=== PATIENT | female | born 2000 | race Caucasian/White ===

== ENCOUNTER 2019-05-05 11:07 | Emergency (ER) | payer MEDICAID, OTHER ==
[~2019-05-05] VITALS: Ht 156 cm; Wt 75.2 kg
[~2019-05-05 11:07] MED LIST: Albuterol inhaler
--- NOTE | 2019-05-05 11:31 | ED GU-Female ---
General Chief Complaint: SELF RISING FLOUR MIXER Stated Complaint: 33 WKS PREG - CRAMPING,SPOTTING Nursing Triage Note: Patient presents to the ED with c/o of cramping and vaginal spotting during . She states that she is 33 weeks and has had cramping on and off for several weeks. She states that today after she wiped she noted pink tinged blood on the toilet paper. Nursing Sepsis Screen: No Definite Risk Source: patient Exam Limitations: no limitations History of Present Illness Date Seen by Provider: May 05, 2019 Time Seen by Provider: 11:15 Initial Comments 19 y/o @ 33wks Presents w c/o spotting (small amount of blood on toilet tissue) last night after urinating. Did have some lower pelvic cramping last night, that resolved. Normal thus far. Routine OB care from Dr Kohler. Has appt on this next week. Allergies and Home Medications Allergies Coded Allergies: No Known Drug Allergies (Verified Allergy, Unknown, 01/05/08) Patient Home Medication List Home Medication List Reviewed: Yes Review of Systems Review of Systems Constitutional: No fever, No malaise, No weakness Respiratory: No cough, No short of breath Cardiovascular: No chest pain, No palpitations, No syncope Gastrointestinal: No abdominal pain, No loss of appetite, No nausea, No vomiting Genitourinary: see HPI, hematuria, pain : Yes Musculoskeletal: no symptoms reported Past Gevrugq-Yyaevy-Pounsh Hx Past Med/Social Hx: Reviewed Nursing Past Med/Soc Hx Patient Social History Alcohol Use: Denies Use Recreational Drug Use: No Smoking Status: Never a Smoker 2nd Hand Smoke Exposure: No Recent Foreign Travel: No Contact w/Someone Who Travel: No Recent Infectious Disease Expo: No Recent Hopitalizations: No (pneumonia as a baby ) Physical Abuse: No Sexual Abuse: No Mistreated: No Fear: No Seasonal Allergies Seasonal Allergies: No Past Medical History Surgeries: Yes (lap appy, BMT) Appendectomy Respiratory: No Cardiac: No Neurological: No : Yes (33 Weeks ) Hx : 2 Hx Para: 1 Reproductive Disorders: No Genitourinary: No Gastrointestinal: No Musculoskeletal: No Endocrine: No HEENT: No Cancer: No Psychosocial: No ([facility] ([place], [place]) ) Blood Disorders: No Physical Exam Vital Signs Vital Signs - First Documented 2/29/20 11:12 Temp 36.3 Pulse 107 Resp 18 B/P (MAP) 127/66 (86) Pulse Ox 99 O2 Delivery Room Air Capillary Refill : Less Than 3 Seconds Height, Weight, BMI Height: '" Weight: lbs. oz. kg; 30.00 BMI Method: General Appearance: WD/WN, no apparent distress Gastrointestinal: normal bowel sounds, non tender, soft, other (size cwd) Progress/Results/Core Measures Suspected Sepsis Recent Fever Within 48 Hours: No Infection Criteria Present: None New/Unexplained Altered Menta: No Sepsis Screen: No Definite Risk SIRS Temperature: Pulse: 107 Respiratory Rate: 18 Blood Pressure 127 /66 Mean: 86 Results/Orders Lab Results Laboratory Tests Test 05/05/19 11:28 Range/Units Urine Color YELLOW Urine Clarity CLOUDY Urine pH 7.5 5-9 Urine Specific Lyons 1.020 1.016-1.022 Urine Protein NEGATIVE NEGATIVE Urine Glucose (UA) NEGATIVE NEGATIVE Urine Ketones TRACE H NEGATIVE Urine Nitrite NEGATIVE NEGATIVE Urine Bilirubin NEGATIVE NEGATIVE Urine Urobilinogen 1.0 < = 1.0 MG/DL Urine Leukocyte Esterase TRACE H NEGATIVE Urine RBC (Auto) NEGATIVE NEGATIVE Urine RBC NONE /HPF Urine WBC 5-10 H /HPF Urine Squamous Epithelial Cells 25-50 H /HPF Urine Crystals PRESENT H /LPF Urine Amorphous Sediment LARGE SHARATH PHOSPHATE H /LPF Urine Bacteria FEW H /HPF Urine Casts NONE /LPF Urine Mucus MODERATE H /LPF Urine Culture Indicated YES My Orders Orders - LASHANDA LOBO DO Ua Culture If Indicated (05/05/19 11:30) Urine Culture (05/05/19 11:28) Vital Signs/I&O 05/05/19 05/05/19 11:12 12:28 Temp 36.3 36.3 Pulse 107 105 Resp 18 18 B/P (MAP) 127/66 (86) 127/66 (86) Pulse Ox 99 99 O2 Delivery Room Air Capillary Refill : Less Than 3 Seconds Blood Pressure Mean: 86 Progress Note : Progress Note Normal FHT's- 140-150's. No abdominal or pelvic pain on exam. Reassurance given and advised to call Dr Kohler if sx progress. Departure Impression Primary Impression: Third trimester bleeding, antepartum Disposition: 01 HOME, SELF-CARE Condition: Stable Departure-Patient Inst. Decision time for Depature: 12:21 Referrals: AMBER KOHLER DO (PCP/Family) Primary Care Physician Patient Instructions: Bleeding With (DC) LASHANDA LOBO DO May 05, 2019 11:31
[2019-05-05 11:48] LABS: CLARITY,URINE CLOUDY; COLOR,URINE YELLOW; PH,URINE 7.5 (5-9)
[2019-05-05 11:49] LABS: AMORPHOUS SEDIMENT,UR LARGE AMOR PHOSPHATE /LPF; BACTERIA,URINE FEW /HPF; BILIRUBIN,URINE NEGATIVE (NEGATIVE); GLUCOSE, URINE (UA) NEGATIVE (NEGATIVE); KETONES,URINE TRACE (NEGATIVE); LEUKOCYTE ESTERASE ,URINE TRACE (NEGATIVE); NITRITE,URINE NEGATIVE (NEGATIVE); PROTEIN,URINE NEGATIVE (NEGATIVE); SQUAMOUS EPITHELIAL CELL,UR 25-50 /HPF
[2019-05-05 12:28] VITALS: BP 127/66
== END 2019-05-05 12:27 | disposition home or self-care (01) ==
LOC: EDUNIT# 11:07 → ER FS 11:08
DX: O26.853 Spotting complicating pregnancy, third trimester (principal); Z3A.22 22 weeks gestation of pregnancy
CPT/HCPCS: 81000; 87088

== ENCOUNTER 2019-06-25 02:31 | Inpatient (IN) | payer MEDICAID ==
[2019-06-25] VITALS (46 sets, daily range): BP systolic 92–180; BP diastolic 53–84
[~2019-06-25] VITALS: Ht 152.4 cm; Wt 78.0 kg
--- NOTE | 2019-06-25 02:35 | NUR ---
POPPY HILL presented to unit via ambulation from home/ED, accompanied by xander MANRIQUEZ/AGNES, zhang for INDUCTION @0600. POPPY HILL weighed, gowned, voided, and to bed. EFHM and TOCO applied, VS taken. POPPY HILL oriented to bed controls, call light, TV, heat, and A/C controls.
--- OUTSIDE RECORDS SUMMARY | 2019-06-25 02:35 | XMS REPORT | Continuity of Care Document ---
Author Organization Unknown Address Unknown Phone Unavailable Allergies Active Description Code Type Severity Reaction Onset Reported/Identified Relationship to Patient Clinical Status Yes No Known Drug Allergies [id number] Drug Allergy Unknown N/A 01/05/2008 Medications There is no data. Problems Date Dx Coded Attending Type Code Diagnosis Diagnosed By 05/08/2019 LASHANDA LOBO DO, Ot O26.853 SPOTTING COMPLICATING , THIRD T 05/08/2019 LASHANDA LOBO DO, Ot Z3A.22 22 WEEKS GESTATION OF Procedures There is no data. Results Test Result Range HCG, QUANTITATIVE - 10/24/18 15:45 HCG, TOTAL, QN 2569 mIU/mL NRG GC/CHLAMYDIA (SWAB OR URINE)-RAPID - 16:09 CHLAMYDIA TRACHOMATIS RNA, TMA NOT DETECTED NOT DETECTED NEISSERIA GONORRHOEAE RNA, TMA NOT DETECTED NOT DETECTED COMMENT NRG SUREPATH PAP RFX HPV mRNA E6/E7 - 16:09 CLINICAL INFORMATION: NRG LMP: NRG PREV. PAP: NRG PREV. BX: NRG SOURCE: Vagina NRG STATEMENT OF ADEQUACY: NRG INTERPRETATION/RESULT: NRG REVERSAL PRINT INSPECTOR: NRG COMMENT NRG BLOOD TPYE/RH FACTOR - 10/31/18 16:50 ABO GROUP O NRG RH TYPE RH(D) POSITIVE NRG ANTIBODY SCREEN - 10/31/18 16:50 ANTIBODY SCREEN, RBC W/REFL ID, TITER AND AG NO ANTIBODIES DETECTED NRG SYPHILIS (RPR W/ REFLEX CONFIRMATION) - 10/31/18 16:50 RPR (DX) W/REFL TITER AND CONFIRMATORY TESTING NON-REACTIVE NON-REACTIVE HEP B SURFACE ANTIGEN - 10/31/18 16:50 HEPATITIS B SURFACE ANTIGEN NON-REACTIVE NON-REACTIVE RUBELLA IMMUNE STATUS - 10/31/18 16:50 RUBELLA ANTIBODY (IGG) 2.07 index NRG SYPHILIS (RPR W/ REFLEX CONFIRMATION) - 04/10/19 12:34 RPR (DX) W/REFL TITER AND CONFIRMATORY TESTING NON-REACTIVE NON-REACTIVE GLUCOSE ENRIQUE 3 HOUR - 04/12/19 14:02 TIME 1 NG NRG SPECIMEN 1 73 mg/dL 65-99 TIME 2 NG NRG SPECIMEN 2 144 mg/dL NRG TIME 3 NG NRG SPECIMEN 3 117 mg/dL NRG TIME 4 NG NRG SPECIMEN 4 109 mg/dL NRG COMMENT NRG Complete urinalysis with reflex to cultu re - 05/05/19 11:28 Urine color determination YELLOW NRG Urine clarity determination CLOUDY NR G Urine pH measurement by test strip 7.5 5-9 Specific gravity of urine by test strip 1.020 1.016-1.022 Urine protein assay by test strip, semi-quantitative NEGATIVE NEGATIVE Urine glucose detection by automated test strip NE GATIVE NEGATIVE Erythrocytes detection in urine sediment by light micr oscopy NEGATIVE NEGATIVE Urine ketones detection by automated test strip TR ZIGGY NEGATIVE Urine nitrite detection by test strip NEGATIVE NEGATIVE Urine total bilirubin detection by test strip NEGA TIVE NEGATIVE Urine urobilinogen measurement by automated test strip (mass/volume) 1.0 mg/dL < = 1.0 Urine leukocyte esterase detection by dipstick TRA CE NEGATIVE Automated urine sediment erythrocyte cou nt by microscopy (number/high power field) NONE NRG Automated urine sediment leukocyte count by microscopy (number/high power field) [HPF] NRG Bacteria detection in urine sediment by light microsco py FEW NRG Squamous epithelial cells detection in u rine sediment by light microscopy 25-50 NRG Crystals detection in urine sediment by light microsco py PRESENT NRG Casts detection in urine sediment by light microscopy NONE NRG Mucus detection in urine sediment by light microscopy MODERATE NRG Complete urinalysis with reflex to culture YES NRG Amorphous sediment detection in urine sediment by ligh t microscopy LARGE SHARATH PHOSPHATE NRG Bacterial urine culture - 05/05/19 11:28 Bacterial urine culture 3 OR MORE NRG COLONY COUNT 20,000 CFU/ML NRG FTX;REPORTABLE GRAM POSITIVES, SUGGESITNG PROBABLE NRG FREE TEXT ENTRY 2 COLLECTION CONTAMINATION WITH SK IN LIAM NRG FREE TEXT ENTRY 3 NO SUSCEPTIBILITY PERFORMED NRG CULTURE, GROUP B STREP (VAGINAL) - 05/30 14:08 STREPTOCOCCUS, GROUP B CULTURE SEE NOTE NRG Encounters ACCT No. Visit Date/Time Discharge Status Pt. Type Provider Facility Loc./Unit Complaint [id number] 06/21/2019 14:15:00 06/21/2019 23:59:5 9 CLS Outpatient DIONE MONCADA [facility] [id number] 05/31/2019 14:00:00 Document Registration [id number] 04/12/2019 10:45:00 Document Registration [id number] 04/10/2019 10:30:00 Document Registration [id number] 10/31/2018 15:30:00 Document Registration [id number] 10/24/2018 15:45:00 Document Registration [id number] 05/05/2019 11:08:00 020 12:27:00 DIS Outpatient LASHANDA LOBO DO [facility] ER FS 33 WKS PREG - CRAMPING,SPOTTING [id number] 06/25/2019 06:00:00 P EN Preadmit AMBER MCMULLEN DO, NDUCTION
[2019-06-25] MEDS ORDERED: D5 LR IV SOLUTION 1,000 ML IV ONE (02:50)
[2019-06-25] MEDS ORDERED: WATER (STERILE) FOR INJECTION 20 ML ONE (02:50)
[2019-06-25] MEDS ORDERED: AMPICILLIN FOR IV USE 2,000 MG VIAL ONE (02:51)
[2019-06-25] MEDS ORDERED: AMPICILLIN FOR IV USE 2,000 MG in WATER (STERILE) FOR INJECTION 14.8 ML IV SCH (03:12)
[2019-06-25] MEDS: D5 LR IV SOLUTION 1,000 ML IV SCH ×2 (03:14→17:33)
[2019-06-25 03:28] LABS: BASOPHILS % (AUTO) 0 % (0-10); EOSINOPHILS % (AUTO) 0 % (0-10); HEMATOCRIT 26 % (35-52); HEMOGLOBIN 8.3 G/DL (11.5-16.0); LYMPHOCYTES # (AUTO) 2.5 X 10^3 (1.0-4.0); LYMPHOCYTES % (AUTO) 26 % (12-44); MEAN CORPUSCULAR HEMOGLOBIN 21 PG (25-34); MEAN CORPUSCULAR HGB CONC 31 G/DL (32-36); MEAN CORPUSCULAR VOLUME 67 FL (80-99); MEAN PLATELET VOLUME 10.3 FL (7.4-10.4); MONOCYTES # (AUTO) 0.8 X 10^3 (0.0-1.0); MONOCYTES % (AUTO) 8 % (0-12); NEUTROPHILS # (AUTO) 6.4 X 10^3 (1.8-7.8); NEUTROPHILS % (AUTO) 65 % (42-75); PLATELET COUNT 344 10^3/uL (130-400); RED CELL DISTRIBUTION WIDTH 17.8 % (10.0-14.5); WHITE BLOOD COUNT 9.8 10^3/uL (4.3-11.0)
[2019-06-25] MEDS ORDERED: fentaNYL 2 mcg/ml BUPIVA 0.125 100 ML ONE (03:44)
[2019-06-25] MEDS ORDERED: fentaNYL INJECTION 100 MCG/2 ML AMP ONE ×2 (04:03→09:54)
[2019-06-25] MEDS ORDERED: BUPIVACAINE 0.25% 30 ML (SENSORCAINE) VIAL ONE ×2 (04:32→11:37)
[2019-06-25] MEDS ORDERED: LACTATED RINGERS 1,000 ML IV ONE ×2 (04:34)
[2019-06-25] MEDS ORDERED: ONDANSETRON 4 MG/2 ML (SDV) Z0FRAN IV PRN (04:45)
[2019-06-25] MEDS ORDERED: EPIDURAL (fentaNYL 2 MCG/ML BUPIVA 0.125%)100 ML BAG EPI PRN (04:45)
[2019-06-25] MEDS ORDERED: NALOXONE 0.4 MG/ML 1 ML (NARCAN) VIAL IV PRN (04:45)
[2019-06-25] MEDS ORDERED: CATHETER FLUSH 10 ML SYR IV SCH ×2 (06:00→14:00)
[2019-06-25] MEDS ORDERED: OXYTOCIN PRE-MIX DRIP 500 ML IV SCH ×2 (06:33→11:24)
[2019-06-25] MEDS ORDERED: OXYTOCIN PRE-MIX DRIP 500 ML IV ONE (06:37)
[2019-06-25] MEDS ORDERED: PREN1TAB19 PO (06:45)
[2019-06-25] MEDS ORDERED: CALC-823 PO (06:45)
[2019-06-25] MEDS ORDERED: AMPICILLIN FOR IV USE 1,000 MG in WATER (STERILE) FOR INJECTION 7.4 ML IV SCH (07:15)
--- NOTE | 2019-06-25 07:32 | History & Physical-OB/GYN ---
History of Present Illness History of Present Illness Reason for visit/HPI Intrauterine at 40 2/7 weeks with SROM. She was scheduled for Pitocin Induction of Labor for today. Date of Admission Jun 25, 2019 at 02:31 Date Seen by a Provider: Jun 25, 2019 Time Seen by a Provider: 07:15 I consulted on this patient on 06/25/19 07:26 Attending Physician Devin Kohler DO Admitting Physician Devin Kohler DO Consult Allergies and Home Medications Allergies Coded Allergies: No Known Drug Allergies (Verified , 01/05/08) Home Medications Calcium Carbonate 500 Mg Tablet, 500 MG PO DAILY, (Reported) Patient Home Medication List Home Medication List Reviewed: Yes Past Kaggnsu-Gawusx-Erkkce Hx Patient Social History Marrital Status: single Number of Children: 2 Number of living children: 2 Employed/Student: unemployed Alcohol Use: Denies Use Recreational Drug Use: No Smoking Status: Never a Smoker 2nd Hand Smoke Exposure: No Physical Abuse Screen: No Sexual Abuse: No Recent Foreign Travel: No Contact w/other who traveled: No Recent Hopitalizations: No (pneumonia as a baby ) Recent Infectious Disease Expo: No Seasonal Allergies Seasonal Allergies: No Surgeries Yes (lap appy, BMT) Appendectomy Respiratory No Cardiovascular No Neurological No Reproductive System Expected Date of Delivery: Jun 25, 2019 Hx Reproductive Disorders: No Genitourinary No Gastrointestinal No Musculoskeletal No Endocrine History of Endocrine Disorders: No HEENT History of HEENT Disorders: No Cancer No Psychosocial History of Psychiatric Problem: No ([facility] ) Integumentary History of Skin or Integumenta: No Blood Transfusions History of Blood Disorders: No Review of Systems Constitutional: see HPI Physical Exam Physical Exam Vital Signs Vital Signs Date Time Temp Pulse Resp B/P (MAP) Pulse Ox O2 Delivery O2 Flow Rate FiO2 06/25/19 06:45 84 18 109/63 (78) 100 Room Air 06/25/19 06:30 36.4 82 18 104/63 (77) 100 Room Air 06/25/19 06:15 79 18 97/60 (72) 98 Room Air 06/25/19 06:00 77 18 105/56 (72) 99 Room Air 06/25/19 05:45 92 18 106/59 (75) 99 Room Air 06/25/19 05:30 97 18 108/57 (74) 99 Room Air 06/25/19 05:15 113 18 120/58 (78) 100 Room Air 06/25/19 05:10 87 18 119/59 (79) 99 Room Air 06/25/19 05:05 120 18 111/58 (75) 100 Room Air 06/25/19 05:00 105 18 109/58 (75) 99 Room Air 06/25/19 04:55 91 18 112/60 (77) 99 Room Air 06/25/19 04:50 88 18 111/59 (76) 99 Room Air 06/25/19 04:45 82 18 120/56 (77) 100 Room Air 06/25/19 04:40 36.5 81 18 117/63 (81) 100 Room Air 06/25/19 04:35 101 18 116/74 (88) 100 Room Air 06/25/19 04:30 102 18 106/63 (77) 100 Room Air 06/25/19 04:27 109 18 120/70 (87) 100 Room Air 06/25/19 04:25 83 18 111/59 (76) 100 Room Air 06/25/19 04:20 84 18 116/64 (81) 100 Room Air 06/25/19 04:15 103 18 123/74 (90) 100 Room Air 06/25/19 04:00 82 18 92/57 (69) Room Air 06/25/19 03:45 85 18 106/60 (75) Room Air 06/25/19 03:30 84 18 110/62 (78) Room Air 06/25/19 03:16 87 18 120/65 (83) Room Air 06/25/19 02:50 36.8 101 18 97 Room Air Capillary Refill : Less Than 3 Seconds Labs Laboratory Tests 06/25/19 03:10: White Blood Count 9.8, Red Blood Count 3.97L, Hemoglobin 8.3L, Hematocrit 26L, Mean Corpuscular Volume 67L, Mean Corpuscular Hemoglobin 21L, Mean Corpuscular Hemoglobin Concent 31L, Red Cell Distribution Width 17.8H, Platelet Count 344, Mean Platelet Volume 10.3, Neutrophils (%) (Auto) 65, Lymphocytes (%) (Auto) 26, Monocytes (%) (Auto) 8, Eosinophils (%) (Auto) 0, Basophils (%) (Auto) 0, Neutrophils # (Auto) 6.4, Lymphocytes # (Auto) 2.5, Monocytes # (Auto) 0.8, Eosinophils # (Auto) 0.0, Basophils # (Auto) 0.0 General Appearance: No Apparent Distress, WD/WN Respiratory: Chest Non Tender, Lungs Clear, Normal Breath Sounds Cardiovascular: Regular Rate, Rhythm, No Murmur Abdominal: normal bowel sounds, non tender Gynecology/General: No urethral discharge Labia: WNL Vagina: WNL Cervix: WNL Cervix OS: open (Cervix: 3 cm/50%/-3 Vertex/SROM/Clear Fluid) Uterus: WNL Pelvic Exam: normal external exam, no cerv. motion tender Extremity: Normal Inspection, Non Tender, No Calf Tenderness Assessment/Plan Assessment and Plan Intrauterine at 40 weeks with SROM 2. GBS Positive Plan: Pitocin Augmentation of Labor. Epidural for antepartum pain management. Ampicillin for GBS treatment. I expect a normal spontaneous vaginal delivery Admission Diagnosis Admission Status: Inpatient Order (span 2 midnights) Reason for Inpatient Admission: Intrauterine at 40 weeks with SROM and GBS Positive Clinical Quality Measures DVT/VTE Risk/Contraindication: Risk Factor Score Per Nursin RFS Level Per Nursing on Admit: 2=Moderate DEVIN KOHLER DO Jun 25, 2019 07:32
[2019-06-25] MEDS ORDERED: TERBUTALINE INJ 1 MG/ML (BRETHINE) AMP ONE (09:53)
[2019-06-25] MEDS ORDERED: METOCLOPRAMIDE INJ 10 MG/2 ML (REGLAN) ONE (09:54)
[2019-06-25] MEDS ORDERED: FAMOTIDINE 20MG/2ML IV (PEPCID) ONE (09:54)
[2019-06-25] MEDS ORDERED: CITRIC ACID/SOB CIT (BICITRA) 30 ML UDC ONE (09:54)
--- NOTE | 2019-06-25 10:02 | NUR ---
consent signed for primary c/s
--- NOTE | 2019-06-25 10:06 | Progress Note-Pre Operative ---
Pre-Operative Progress Note H&P Reviewed The H&P was reviewed, patient examined and no changes noted. Date Seen by Provider: Jun 25, 2019 Time Seen by Provider: 10:00 Date H&P Reviewed: Jun 25, 2019 Time H&P Reviewed: 10:00 Pre-Operative Diagnosis: Intrauterine at 40 weeks 2. GBS Positive 3. Secondary Arrest of AMBER MCMULLEN DO Jun 25, 2019 10:06
--- NOTE | 2019-06-25 10:10 | Progress Note ---
Standard Progress Note Progress Notes/Assess & Plan Date Seen by a Provider: Jun 25, 2019 Time Seen by a Provider: 10:00 Progress/Assessment & Plan Preoperative Note Ms. Jean progressed to complete. Then, she pushed for over an hour with no further descent of the vertex. I believe that the the vertex is in an LOP presentation and Ms. Jean is unable to circumvent despite being placed in the right and left lateral recumbent position, followed by knee-chest. Maternal exhaustion and LOP presentation prompted our discussion of . The procedure and its associated risks were discussed. All questions were answered. Informed consent was obtained. Final Diagnosis Intrauterine at 40 weeks 2. GBS Positive 3. Secondary Arrest of Desc ent 4. Persistent Occiput Posterior 5. Maternal Exhaustion AMBER MCMULLEN DO Jun 25, 2019 10:10
[2019-06-25] MEDS ORDERED: METOCLOPRAMIDE INJ 10 MG/2 ML (REGLAN) IV ONE (10:30)
[2019-06-25] MEDS ORDERED: CITRIC ACID/SOB CIT (BICITRA) 30 ML UDC PO ONE (10:30)
[2019-06-25] MEDS ORDERED: FAMOTIDINE 20MG/2ML IV (PEPCID) IV ONE (10:30)
[2019-06-25] MEDS ORDERED: MEPERIDINE (DEMEROL) INJ 50 MG/ML ONE (10:42)
[2019-06-25] MEDS ORDERED: LIDOCAINE PF 2% 5 ML (XYLOCAINE) VIAL ONE (10:51)
[2019-06-25] MEDS ORDERED: fentaNYL INJECTION 100 MCG/2 ML AMP IVP PRN (11:30)
[2019-06-25] MEDS ORDERED: MEASLES,MUMPS,RUBELLA 1 EA INJ SC SCH (11:30)
[2019-06-25] MEDS ORDERED: ONDANSETRON 4 MG/2 ML (SDV) Z0FRAN IVP PRN (11:30)
[2019-06-25] MEDS ORDERED: TETANUS,DIPTH,PERTUSS P/F (BOOSTRIX) 0.5 ML VIAL IM SCH (11:30)
--- NOTE | 2019-06-25 11:36 | Cesarean Section Operative ---
Procedure Procedure Note Pre-operative Diagnosis: Hattie Jean is julia (19 /Para / ,Gestational Age (wks)40 with [SROM] 2. GBS Positive 3. Secondary Arrest of Descent 4. Left Occiput Posterior Post-operative Diagnosis: same [ and Persistent Occiput Posterior] Procedure: [Primary] low transverse section Physician: AMBER MCMULLEN Business Services Sales Agent: [] Estimated blood loss: [400] mL Disposition: [Recovery Room] Findings: Viable [Female] infant, Apgars [8, 9], weight [7 lbs 10 oz], intact placenta, 3vc, normal appearing uterus, tubes, and ovaries. Indications:Hattie dumont (19 /Para / ,Gestational Age (wks)40 presenting for [Secondary Arrest of Descent]. Procedure Details: The patient was seen in pre-op and the procedure was discussed with the patient in full, including the risks, benefits, and alternatives. All questions were answered. The patient was taken to the operating room and a time out was pe rformed, verifying patient and procedure. After epidural anesthesia was dosed by our anesthesia colleagues, the patient was placed in the dorsal supine with leftward tilt for uterine displacement.~ Her abdomen was then prepped and draped in the typical sterile fashion. A Pfannenstiel skin incision was made using a scalpel and carried down through the underlying fascia. The fascia was incised in the midline and tented up using Christ clamps. On both the inferior and superior fascia side the rectus muscle was dissected off bluntly and sharply using Moore scissors. The peritoneum was identified and entered bluntly in the midline. This was then stretched laterally using manual strength. After entering the abdominal cavity and confirming lack of intraperitoneal adhesions, a large Luis retractor was placed and the lower uterine segment was visualized. A bladder flap was created with the use of Metzenbaum scissors.~ A scalpel was utilized to make a low transverse uterine incision. Amniotomy was performed with an Allis clamp with return of clear fluid. The infant's head was grasped and brought to the level of the incision. Fundal pressure was applied and was delivered without difficulty. Mouth and nares were suctioned with bulb suction. After the umbilical cord was clamped and cut, the infant was handed off to the pediatric staff where NRP protocol was followed. A sample of cord blood was then obtained. The placenta was delivered intact via uterine massage. The uterus was exteriorized and cleared of all clots and debris. The uterine incision was closed using 0 Vicryl in a running locked fashion. A second imbricated layer was placed using 0 Vicryl in a running fashion as well. The uterus was flexed forward and the posterior rectouterine space was inspected and cleared of all clots and debris. Again the hysterotomy site was examined and hemostasis was observed. The bilateral tubes and ovaries appeared normal. The uterus was placed back into the abdominal cavity and abdominal gutters were cleared of all clots and debris. A final check of the uterine incision showed it to be hemostatic. The peritoneum was closed using 3-0 Vicryl in a running fashion. The fascia was closed with 0 Vicryl in a running fashion. The subcutaneous space was hemostatic, and irrigated. The subcutaneous space was closed with 3-0 Plain Gut in several single interrupted stitches. The skin was then closed using 4-0 Monocryl in a running subcuticular fashion. The skin edges were reapproximated together and were hemostatic. A pressure dressing was applied. All sponge, lap and needle counts were correct x 3 at the end of the procedure per nursing. Vitals - Labs Vital Signs - I&O Vital Signs Date Time Temp Pulse Resp B/P (MAP) Pulse Ox O2 Delivery O2 Flow Rate FiO2 06/25/19 07:15 90 18 105/58 (74) 100 Room Air 06/25/19 07:00 91 18 106/60 (75) 99 Room Air 06/25/19 06:45 84 18 109/63 (78) 100 Room Air 06/25/19 06:30 36.4 82 18 104/63 (77) 100 Room Air 06/25/19 06:15 79 18 97/60 (72) 98 Room Air 06/25/19 06:00 77 18 105/56 (72) 99 Room Air 06/25/19 05:45 92 18 106/59 (75) 99 Room Air 06/25/19 05:30 97 18 108/57 (74) 99 Room Air 06/25/19 05:15 113 18 120/58 (78) 100 Room Air 06/25/19 05:10 87 18 119/59 (79) 99 Room Air 06/25/19 05:05 120 18 111/58 (75) 100 Room Air 06/25/19 05:00 105 18 109/58 (75) 99 Room Air 06/25/19 04:55 91 18 112/60 (77) 99 Room Air 06/25/19 04:50 88 18 111/59 (76) 99 Room Air 06/25/19 04:45 82 18 120/56 (77) 100 Room Air 06/25/19 04:40 36.5 81 18 117/63 (81) 100 Room Air 06/25/19 04:35 101 18 116/74 (88) 100 Room Air 06/25/19 04:30 102 18 106/63 (77) 100 Room Air 06/25/19 04:27 109 18 120/70 (87) 100 Room Air 06/25/19 04:25 83 18 111/59 (76) 100 Room Air 06/25/19 04:20 84 18 116/64 (81) 100 Room Air 06/25/19 04:15 103 18 123/74 (90) 100 Room Air 06/25/19 04:00 82 18 92/57 (69) Room Air 06/25/19 03:45 85 18 106/60 (75) Room Air 06/25/19 03:30 84 18 110/62 (78) Room Air 06/25/19 03:16 87 18 120/65 (83) Room Air 06/25/19 02:50 36.8 101 18 97 Room Air Labs Laboratory Tests 06/25/19 03:10: White Blood Count 9.8, Red Blood Count 3.97L, Hemoglobin 8.3L, Hematocrit 26L, Mean Corpuscular Volume 67L, Mean Corpuscular Hemoglobin 21L, Mean Corpuscular Hemoglobin Concent 31L, Red Cell Distribution Width 17.8H, Platelet Count 344, Mean Platelet Volume 10.3, Neutrophils (%) (Auto) 65, Lymphocytes (%) (Auto) 26, Monocytes (%) (Auto) 8, Eosinophils (%) (Auto) 0, Basophils (%) (Auto) 0, Neutrophils # (Auto) 6.4, Lymphocytes # (Auto) 2.5, Monocytes # (Auto) 0.8, E osinophils # (Auto) 0.0, Basophils # (Auto) 0.0 SEALSAMBER E DO Jun 25, 2019 11:36
[2019-06-25] MEDS: KETOROLAC 30 MG/ML VIAL IV SCH ×2 (11:56→18:31)
--- NOTE | 2019-06-25 12:15 | NUR ---
pt transferred to room 308 via bed from OB PACU with this RN, and s/o @ side. familiarized with room surroundings. call light within reach.
--- NOTE | 2019-06-25 13:30 | NUR ---
glenn-care offered by VICKIE Schultz.
[2019-06-25] MEDS: METOCLOPRAMIDE 10 MG (REGLAN) TAB PO SCH ×2 (16:12→22:15)
[2019-06-25] MEDS: ACETAMINOPHEN 500 MG TAB (TYLENOL) PO SCH ×2 (16:12→22:15)
--- NOTE | 2019-06-25 18:00 | NUR ---
glenn-care offered. v-pad and chux saturated- FFu/0. lt rubra noted, no clots expressed. vs taken. assisted up to glider @ bedside. tolerated well.
--- NOTE | 2019-06-25 18:10 | NUR ---
pad and chux weighed = 365ml. was called with update on pt's status and urine output. new orders received.
[2019-06-25] MEDS ORDERED: NS IV 1000 ML 1,000 ML IV SCH (18:15)
--- NOTE | 2019-06-25 18:38 | NUR ---
pt sitting up in chair, eating clear liquid. POC reviewed with pt and s.o. scheduled Toradol IV and Methergine p.o. given. see eMar for further. IVF bolus started.
--- NOTE | 2019-06-25 19:11 | NUR ---
report given to next shift.
[2019-06-25] MEDS: DOCUSATE SODIUM 100 MG (COLACE) CAP PO SCH (20:13)
--- NOTE | 2019-06-25 20:45 | NUR ---
Pt resting in bed with eyes closed. assessment completed. pt denies any needs at this time. will continue to monitor.
[2019-06-25] MEDS ORDERED: METHYLERGONOVINE 0.2 MG (MEHTERGINE) TAB PO SCH (21:00)
[2019-06-25] MEDS ORDERED: ZOLPIDEM 5 MG (AMBIEN) TAB PO SCH (21:00)
--- NOTE | 2019-06-25 22:42 | NUR ---
pt put process control engineer light, iv peeping. infiltrated. iv dc'd. pt ambulated to the bathroom. pericare completed. pad changed. po pain meds given. pt denies any further needs. will continue to monitor.
[2019-06-25] MEDS ORDERED: IBUPROFEN 600 MG (MOTRIN) TAB PO ONE (23:58)
[2019-06-26] MEDS ORDERED: IBUPROFEN 800 MG (MOTRIN) TAB PO ONE ×2 (00:02→08:09)
[2019-06-26] MEDS: IBUPROFEN 800 MG (MOTRIN) TAB PO SCH ×2 (00:09→08:20)
--- NOTE | 2019-06-26 00:30 | NUR ---
pt put information receptionist light, requesting burrows be removed. pt ambulated to the bathroom. pericare completed. stormy alvarado'd. pt ambulated back to bed. denies any needs at this time. will continue to monitor.
[2019-06-26 01:20] VITALS: BP 115/70
[2019-06-26] MEDS ORDERED: BISACODYL 10 MG SUPP (DULCOLAX) PR ONE (05:00)
[2019-06-26] MEDS: METOCLOPRAMIDE 10 MG (REGLAN) TAB PO SCH ×2 (05:00→11:30)
[2019-06-26] MEDS ORDERED: MILK OF MAGNESIA 400 MG/5 ML 30 ML UDC PO ONE (05:00)
--- NOTE | 2019-06-26 05:00 | NUR ---
pt assisted to the bathroom. positive void. pericare completed. pt assisted back to bed.
[2019-06-26] MEDS: ACETAMINOPHEN 500 MG TAB (TYLENOL) PO SCH ×2 (05:01→11:29)
[2019-06-26 05:03] VITALS: BP 114/72
--- NOTE | 2019-06-26 05:38 | NUR ---
pt up to the bathroom. positive bm. cold tray given. pt denies any further needs. will continue to monitor.
[2019-06-26 05:59] LABS: BASOPHILS % (AUTO) 0 % (0-10); EOSINOPHILS % (AUTO) 0 % (0-10); HEMATOCRIT 23 % (35-52); LYMPHOCYTES # (AUTO) 2.3 X 10^3 (1.0-4.0); LYMPHOCYTES % (AUTO) 18 % (12-44); MEAN CORPUSCULAR HEMOGLOBIN 21 PG (25-34); MEAN CORPUSCULAR HGB CONC 31 G/DL (32-36); MEAN CORPUSCULAR VOLUME 68 FL (80-99); MEAN PLATELET VOLUME 10.3 FL (7.4-10.4); MONOCYTES % (AUTO) 8 % (0-12); NEUTROPHILS # (AUTO) 9.5 X 10^3 (1.8-7.8); NEUTROPHILS % (AUTO) 74 % (42-75); PLATELET COUNT 276 10^3/uL (130-400); RED CELL DISTRIBUTION WIDTH 18.1 % (10.0-14.5); WHITE BLOOD COUNT 12.8 10^3/uL (4.3-11.0)
[2019-06-26] MEDS ORDERED: ACET-93 PO (06:48)
[2019-06-26] MEDS ORDERED: IBUP-1780 PO (06:48)
[2019-06-26] MEDS ORDERED: OXYC5TAB96 PO (06:48)
[2019-06-26] MEDS ORDERED: DCS100C PO (06:48)
--- NOTE | 2019-06-26 06:56 | Discharge Summary ---
Diagnosis/Chief Complaint Date of Admission Jun 25, 2019 at 02:31 Date of Discharge June 26, 2019 Discharge Date: Jun 26, 2019 Discharge Time: 12:00 Admission Diagnosis Admission Diagnosis Intrauterine at 40 weeks 2. GBS Positive Discharge Diagnosis Intrauterine at 40 weeks 2. GBS Positive 3. Secondary Arrest of Descent 4. Persistent Occiput Posterior 5. Maternal Exhaustion Reason Hospital Visit Intrauterine at 40 2/7 weeks with SROM. She was scheduled for Pitocin Induction of Labor for today. Discharge Summary Hospital Course Was the Problem List Reviewed?: Yes Hospital Course Ms. Jean, 40 weeks gestation, presented to the hospital for SROM. Once admitted her labor was augmented with Pitocin. She progressed to complete, pushed for over an hour with no further descent of the vertex. Also, Ms. Jean stated that she couldn't push any more--completely worn out. At this point, it was decided to proceed with an immediate . A was performed without complications. Postoperatively, she was start on IV and oral medications along with other comfort measures. At one point, her urinary output dropped--her IV fluids was increased and her urinary output increased. The remainder of her hospitalization was unremarkable. Her vital signs remained stable throughout her hospitalization. Postoperative Day#1 found Ms. Jean voiding freely, moving her bowels, tolerating a Regular Diet, ambulating and controlling her pain with oral medications. She will be discharged to home with instructions, prescriptions and a follow up appointment. Labs Laboratory Tests 06/25/19 03:10: Red Blood Count 3.97L, Hemoglobin 8.3L, Hematocrit 26L, Mean Corpuscular Volume 67L, Mean Corpuscular Hemoglobin 21L, Mean Corpuscular Hemoglobin Concent 31L, Red Cell Distribution Width 17.8H 06/26/19 05:17: Red Blood Count 3.36L, Hemoglobin 7.0L, Hematocrit 23L, Mean Corpuscular Volume 68L, Mean Corpuscular Hemoglobin 21L, Mean Corpuscular Hemoglobin Concent 31L, Red Cell Distribution Width 18.1H, White Blood Count 12.8H, Neutrophils # (Auto) 9.5H Procedures None. Discharge Physical Examination Allergies: Coded Allergies: No Known Drug Allergies (Verified , 01/05/08) Vitals & I&Os Vital Signs Date Time Temp Pulse Resp B/P (MAP) Pulse Ox O2 Delivery O2 Flow Rate FiO2 4/21/20 05:03 36.6 75 18 114/72 (86) 98 Room Air General Appearance: Alert, Oriented X3, Cooperative HEENT: Atraumatic Respiratory: Clear to Auscultation, Normal Air Movement Cardiovascular: Regular Rate, No Murmurs Abdominal: Normal Bowel Sounds, No Tenderness Extremities: No Clubbing, No Cyanosis Skin: No Rashes Neuro: Normal Gait, Normal Speech Psych/Mental Status: Mental Status NL Discharge Home Medications Reviewed and agree with Discharge Medication list on patient's Discharge Instruc tion sheet Instructions to Patient/Family Please see electronic discharge instructions given to patient. Clinical Quality Measures DVT/VTE Risk/Contraindication: Risk Factor Score Per Nursin RFS Level Per Nursing on Admit: 2=Moderate AMBER MCMULLEN DO Jun 26, 2019 06:56
[2019-06-26 08:00] VITALS: BP 108/65
--- NOTE | 2019-06-26 08:00 | NUR ---
A.M. ASSESSMENT COMPLETED. VSS. CARING FOR IN ROOM. GOOD INTERACTION NOTED.
[2019-06-26] MEDS: DOCUSATE SODIUM 100 MG (COLACE) CAP PO SCH (08:20)
--- NOTE | 2019-06-26 10:27 | Anesthesia-Regional Post-Op ---
Regional Patient Condition Mental Status: Alert, Oriented x3 Circulation: Same as Pre-Op Headache: Absent Sensation: Full Recovery Motor Block: Absent Post Op Complications Complications None Follow Up Care/Instructions Patient Instructions None needed. Anesthesia/Patient Condition Patient is doing well, no complaints, stable vital signs, no apparent adverse anesthesia problems. No complications reported per nursing. D/C home per [facility] Criteria: No ADAMA CASTANEDA CRNA Jun 26, 2019 10:26
--- NOTE | 2019-06-26 11:00 | NUR ---
PT AT INTERVALS BUT MAINLY BOTTLE FEEDING. HAS BEEN IN TO SEE PT.
[2019-06-26 12:00] VITALS: BP 108/73
--- NOTE | 2019-06-26 12:45 | NUR ---
EATING STORK MEAL.
--- NOTE | 2019-06-26 13:15 | NUR ---
DISCHARGE INSTRUCTIONS REVIEWED WITH COPY TO PT. RXS GIVEN. STATES UNDERSTANDING OF ALL INSTRUCTIONS AND NEED TO F/U SCHEDULED AND NEEDED.
[2019-06-26 13:40] VITALS: BP 108/73
--- NOTE | 2019-06-26 13:40 | NUR ---
DISMISSED FROM [facility] VIA W/C WITH TO FAMILY CAR IN STABLE CONDITION ACC BY RYAN JOHNSTON.
== END 2019-06-26 13:40 | disposition home or self-care (01) | DRG 788 ==
LOC: LDRP 02:31
PROVIDERS: ADMIT Obstetrics & Gynecology; ATTEND Obstetrics & Gynecology
PROC: 3E033VJ Introduction of Other Hormone into Peripheral Vein, Percutaneous Approach (ICD-10-PCS; 2019-06-25)
PROC: 10D00Z1 Extraction of Products of Conception, Low, Open Approach (ICD-10-PCS; principal; 2019-06-25 10:39)
DX: O48.0 Post-term pregnancy (principal); O99.824 Streptococcus B carrier state complicating childbirth; O62.1 Secondary uterine inertia; O64.0XX0 Obstructed labor due to incomplete rotation of fetal head, not applicable or unspecified; O75.81 Maternal exhaustion complicating labor and delivery; Z37.0 Single live birth; Z3A.40 40 weeks gestation of pregnancy; Z23 Encounter for immunization; Z90.49 Acquired absence of other specified parts of digestive tract
CPT/HCPCS: 36415; 85025; 86850; 86900; 86901; 90715; 94664; 99212

== ENCOUNTER 2021-03-15 10:37 | Emergency (ER) | payer MEDICAID ==
[~2021-03-15] VITALS: Ht 152.4 cm; Wt 78.1 kg
[~2021-03-15 10:37] MED LIST changes: +ACET-93 PO; +CALC-823 PO; +DOCU-239 PO; +IBUP-1780 PO; +OXC5T PO; +PREN1TAB19 PO
[2021-03-15 10:40] VITALS: BP 125/88
[2021-03-15 11:02] LABS: CLARITY,URINE CLEAR; COLOR,URINE YELLOW; GLUCOSE, URINE (UA) NEGATIVE (NEGATIVE); KETONES,URINE NEGATIVE (NEGATIVE); NITRITE,URINE NEGATIVE (NEGATIVE); PROTEIN,URINE NEGATIVE (NEGATIVE)
[2021-03-15 11:03] LABS: BACTERIA,URINE MODERATE /HPF; BILIRUBIN,URINE NEGATIVE (NEGATIVE); LEUKOCYTE ESTERASE ,URINE NEGATIVE (NEGATIVE); SQUAMOUS EPITHELIAL CELL,UR 25-50 /HPF
[2021-03-15] MEDS ORDERED: IBUPROFEN 600 MG (MOTRIN) TAB PO ONE (11:30)
--- NOTE | 2021-03-15 11:31 | ED Abdominal Pain ---
General Chief Complaint: Abdominal/GI Problems Stated Complaint: ABD PAIN Nursing Triage Note: Patient reports intermittent, cramping, bilateral (worse on the left) lower abdominal/lower back pain since last night. She denies any nausea/vomiting/diarrhea, reports she took tylenol 2 hours ago without any relief. She states she is just starting her period. She reports she had her tubes tied in May and has had intermittent lower abdominal pain since then. She states she has reported this to her PCP and was told her pain is normal. Source of Information: Patient Exam Limitations: No Limitations History of Present Illness Date Seen by Provider: Mar 15, 2021 Time Seen by Provider: 11:30 Initial Comments Patient is a 21-year-old female presents with monthly pelvic pain, premenstrual cramping. She is patient states she has had severe menstrual cramps prior to her period starting the past year. Pain is moderate to severe and is described as sharp is generally localized over the left pelvis and radiates into her back. Patient denies nausea vomiting fever chills sweats. No urinary frequency urgency or dysuria. Patient has not yet begun menstrual bleeding. She took Tylenol this morning with minimal relief. She states she has talked with her supervisor [employer] who has told her that it is normal. She reports previous and tubal ligation. No other symptoms or complaints Timing/Duration: 1-3 Hours Severity/Quality: Moderate, Sharp Location: Other Radiation: Other Activities at Onset: Other Modifying Factors: Improves With Other Associated Symptoms: Other Allergies and Home Medications Allergies Coded Allergies: No Known Drug Allergies (Verified , 01/05/08) Patient Home Medication List Home Medication List Reviewed: Yes Acetaminophen (Acetaminophen) 500 Mg Tablet, 1,000 MG PO Q6HR Prescribed by: AMBER MCMULLEN on 06/26/19647 Docusate Sodium (Dok) 100 Mg Capsule, 100 MG PO BID Prescribed by: AMBER E DRISSS on 06/26/19647 Ibuprofen (Ibuprofen) 800 Mg Tablet, 800 MG PO Q8H Prescribed by: AMBER NAQVIS on 06/26/19647 Oxycodone Hcl (Oxyir Tablet) 5 Mg Tablet, 5 MG PO Q4HR PRN for To achieve TAG Prescribed by: AMBER MCMULLEN on 06/26/19647 Vit/Iron Fumarate/FA ( Vitamins Tablet) 1 Each Tablet, 1 EACH PO, (Reported) Entered as Reported by: JOANN MARTIN on 06/25/19 0645 Review of Systems Review of Systems Constitutional: see HPI EENTM: See HPI Respiratory: See HPI Cardiovascular: See HPI Gastrointestinal: See HPI Genitourinary: See HPI Musculoskeletal: see HPI Skin: see HPI Psychiatric/Neurological: See HPI Endocrine: See HPI Hematologic/Lymphatic: See HPI All Other Systems Reviewed Negative Unless Noted: Yes Past Oiyucga-[id number]-[id number] Hx Patient Social History Tobacco Use?: No Use of E-Cig and/or Vaping dev: No Substance use?: No Alcohol Use?: No Pt feels they are or have been: No Seasonal Allergies Seasonal Allergies: No Past Medical History Surgeries: Yes (lap appy, BMT) Appendectomy Respiratory: No Cardiac: No Neurological: No Last Menstrual Period: Mar 14, 2021 Reproductive Disorders: No Genitourinary: No Gastrointestinal: No Musculoskeletal: No Endocrine: No HEENT: No Cancer: No Psychosocial: No (pt [facility] ) Integumentary: No Blood Disorders: No Family Medical History Patient reports no known family medical history. Physical Exam Vital Signs Vital Signs - First Documented 03/15/21 10:40 Temp 36.2 Pulse 78 Resp 18 B/P (MAP) 125/88 (100) Pulse Ox 98 O2 Delivery Room Air Capillary Refill : Less Than 3 Seconds Height/Weight/BMI Height: '" Weight: lbs. oz. kg; 33.00 BMI Method: General Appearance: WD/WN, no apparent distress HEENT: PERRL/EOMI Respiratory: lungs clear Cardiovascular: regular rate, rhythm Gastrointestinal: soft, other Back: normal inspection, no CVA tenderness Progress/Results/Core Measures Results/Orders Lab Results Laboratory Tests Test 03/15/21 10:45 Range/Units Urine Color YELLOW Urine Clarity CLEAR Urine pH 7.0 5-9 Urine Specific [place] 1.020 1.016-1.022 Urine Protein NEGATIVE NEGATIVE Urine Glucose (UA) NEGATIVE NEGATIVE Urine Ketones NEGATIVE NEGATIVE Urine Nitrite NEGATIVE NEGATIVE Urine Bilirubin NEGATIVE NEGATIVE Urine Urobilinogen 1.0 < = 1.0 MG/DL Urine Leukocyte Esterase NEGATIVE NEGATIVE Urine RBC (Auto) 1+ H NEGATIVE Urine RBC 10-25 H /HPF Urine WBC NONE /HPF Urine Squamous Epithelial Cells 25-50 H /HPF Urine Crystals NONE /LPF Urine Bacteria MODERATE H /HPF Urine Casts NONE /LPF Urine Mucus LARGE H /LPF Urine Culture Indicated NO My Orders Orders - PETER HILL DO Ua Culture If Indicated (03/15/21 10:40) Urine Bedside (03/15/21 10:40) Ibuprofen Tablet (Motrin Tablet) (03/15/21 11:30) Vital Signs/I&O 03/15/21 10:40 Temp 36.2 Pulse 78 Resp 18 B/P (MAP) 125/88 (100) Pulse Ox 98 O2 Delivery Room Air Blood Pressure Mean: 100 Departure Communication (Admissions) hCG negative. UA resulting reassuring. Cyclical pelvic pain most consistent with premenstrual cramps. Recommendations are supportive care, watchful waiting and follow-up with supervisor [employer]. Impression Primary Impression: Pelvic pain in female Disposition: 01 HOME, SELF-CARE Condition: Stable Departure-Patient Inst. Decision time for Depature: 11:30 Referrals: CHANG CLANCY MD (PCP) Primary Care Physician Patient Instructions: Pelvic Pain ED Add. Discharge Instructions: Please take ibuprofen and/or Tylenol for pelvic cramping use heating pad or take a hot shower. Follow-up with your supervisor [employer] for further management. Return to the ED if new or worsening symptoms. All discharge instructions reviewed with patient and/or family. Voiced understanding. PETER HILL DO Mar 15, 2021 11:31
== END 2021-03-15 11:58 | disposition home or self-care (01) ==
LOC: EDUNIT# 10:37 → ER FS 10:38
DX: R10.2 Pelvic and perineal pain (principal)
CPT/HCPCS: 81000; 84703; 99283

== ENCOUNTER 2022-03-18 21:35 | Emergency (ER) | payer MEDICAID ==
[~2022-03-18] VITALS: Ht 154.9 cm; Wt 55.2 kg
[2022-03-18 21:37] VITALS: BP 123/75
--- NOTE | 2022-03-18 21:44 | ED GU-Female ---
General Stated Complaint: ABNORMAL VAG BLEEDING History of Present Illness Date Seen by Provider: Mar 18, 2022 Time Seen by Provider: 21:44 Initial Comments 22-year-old female presents with abnormal vaginal bleeding. She reports that she has had a very heavy vaginal bleeding for 3 days. She reports that she had a menstrual cycle about a week ago and ended. That this started after she had intercourse. She is not having any vaginal pain. She is just concerned that she is still having bleeding. She feels like she has been having to change a pad every hour. Allergies and Home Medications Allergies Coded Allergies: No Known Drug Allergies (Verified , 01/05/08) Patient Home Medication List Home Medication List Reviewed: Yes Acetaminophen (Acetaminophen) 500 Mg Tablet, 1,000 MG PO Q6HR Prescribed by: AMBER MCMULLEN on 06/26/19 0648 Docusate Sodium (Dok) 100 Mg Capsule, 100 MG PO BID Prescribed by: AMBER MCMULLEN on 06/26/19 0648 Ibuprofen (Ibuprofen) 800 Mg Tablet, 800 MG PO Q8H Prescribed by: AMBER MCMULLEN on 06/26/19 0648 Oxycodone Hcl (Oxyir Tablet) 5 Mg Tablet, 5 MG PO Q4HR PRN for To achieve TAG Prescribed by: AMBER MCMULLEN on 06/26/19 0648 Vit/Iron Fumarate/FA ( Vitamins Tablet) 1 Each Tablet, 1 EACH PO, (Reported) Entered as Reported by: JOANN MARTIN on 06/25/19 0645 Review of Systems Review of Systems Constitutional: No chills, No fever EENTM: no symptoms reported Respiratory: no symptoms reported Cardiovascular: no symptoms reported Gastrointestinal: no symptoms reported Genitourinary: see HPI Musculoskeletal: no symptoms reported Skin: no symptoms reported Psychiatric/Neurological: No Symptoms Reported Past Qqflfsv-Adqluj-Zfmbex Hx Seasonal Allergies Seasonal Allergies: No Past Medical History Surgeries: Yes (lap appy, BMT) Appendectomy Respiratory: No Cardiac: No Neurological: No Reproductive Disorders: No Genitourinary: No Gastrointestinal: No Musculoskeletal: No Endocrine: No HEENT: No Cancer: No Psychosocial: No ([facility] ) Integumentary: No Blood Disorders: No Family Medical History Patient reports no known family medical history. Physical Exam Vital Signs Vital Signs - First Documented 03/18/22 21:37 Temp 37.0 Pulse 83 Resp 16 B/P (MAP) 123/75 (91) Pulse Ox 100 O2 Delivery Room Air Capillary Refill : Height, Weight, BMI Height: '" Weight: lbs. oz. kg; 33.00 BMI Method: General Appearance: WD/WN, no apparent distress Neck: non-tender, full range of motion Cardiovascular: normal peripheral pulses, regular rate, rhythm Respiratory: lungs clear, normal breath sounds Gastrointestinal: normal bowel sounds, non tender, soft Pelvic: normal external exam, no cerv. motion tender, vaginal bleeding, other (Bleeding present at the cervical os, no lacerations or injury to the vaginal vault) Extremities: normal range of motion, non-tender Neurologic/Psychiatric: alert, normal mood/affect, oriented x 3 Progress/Results/Core Measures Suspected Sepsis SIRS Temperature: Pulse: Respiratory Rate: Laboratory Tests 03/18/22 22:18: White Blood Count 11.0 Blood Pressure / Mean: Laboratory Tests 03/18/22 22:18: Platelet Count 381 Results/Orders Lab Results Laboratory Tests Test 03/18/22 21:45 03/18/22 22:18 Range/Units Urine Color RED H Urine Clarity CLOUDY Urine pH 6.0 5-9 Urine Specific [place] >=1.030 1.016-1.022 Urine Protein 1+ H NEGATIVE Urine Glucose (UA) NEGATIVE NEGATIVE Urine Ketones NEGATIVE NEGATIVE Urine Nitrite NEGATIVE NEGATIVE Urine Bilirubin NEGATIVE NEGATIVE Urine Urobilinogen 0.2 < = 1.0 MG/DL Urine Leukocyte Esterase NEGATIVE NEGATIVE Urine RBC (Auto) 3+ H NEGATIVE Urine RBC >100 H /HPF Urine WBC 2-5 /HPF Urine Squamous Epithelial Cells 2-5 /HPF Urine Crystals NONE /LPF Urine Bacteria TRACE /HPF Urine Casts NONE /LPF Urine Mucus MODERATE H /LPF Urine Culture Indicated NO Urine Test NEGATIVE NEGATIVE White Blood Count 11.0 4.3-11.0 10^3/uL Red Blood Count 4.54 3.80-5.11 10^6/uL Hemoglobin 12.4 11.5-16.0 g/dL Hematocrit 37 35-52 % Mean Corpuscular Volume 80 80-99 fL Mean Corpuscular Hemoglobin 27 25-34 pg Mean Corpuscular Hemoglobin Concent 34 32-36 g/dL Red Cell Distribution Width 15.2 H 10.0-14.5 % Platelet Count 381 130-400 10^3/uL Mean Platelet Volume 10.6 9.0-12.2 fL Immature Granulocyte % (Auto) 0 % Neutrophils (%) (Auto) 59 42-75 % Lymphocytes (%) (Auto) 32 12-44 % Monocytes (%) (Auto) 5 0-12 % Eosinophils (%) (Auto) 3 0-10 % Basophils (%) (Auto) 0 0-10 % Neutrophils # (Auto) 6.5 1.8-7.8 10^3/uL Lymphocytes # (Auto) 3.6 1.0-4.0 10^3/uL Monocytes # (Auto) 0.6 0.0-1.0 10^3/uL Eosinophils # (Auto) 0.3 0.0-0.3 10^3/uL Basophils # (Auto) 0.0 0.0-0.1 10^3/uL Immature Granulocyte # (Auto) 0.0 0.0-0.1 10^3/uL My Orders Orders - MICHAEL PATHAK DO Cbc With Automated Diff (03/18/22 21:44) Ua Culture If Indicated (03/18/22 21:44) Hcg,Qualitative Urine (03/18/22 22:09) Vital Signs/I&O 03/18/22 21:37 Temp 37.0 Pulse 83 Resp 16 B/P (MAP) 123/75 (91) Pulse Ox 100 O2 Delivery Room Air Capillary Refill : Progress Note : Progress Note Patient's labs were reviewed and her hemoglobin is in the normal range, patient's not . Her urine is consistent with abnormal vaginal bleeding. Pelvic exam shows bleeding is coming from the cervical os with no abrasions or lacerations in the vaginal vault. Discussed with patient the need to follow-up with her primary care provider or fast food server next week if her symptoms continue. She should return to the ER as needed. She is stable and discharged Departure Impression Primary Impression: Vaginal bleeding, abnormal Disposition: 01 HOME, SELF-CARE Condition: Stable Departure-Patient Inst. Referrals: CHANG CLANCY MD (PCP) Primary Care Physician AMBER MCMULLEN DO (Family) Primary Care Physician Patient Instructions: Absent or Irregular Periods, Heavy Periods ED Add. Discharge Instructions: Please follow-up with your primary care provider or your fast food server if you continue to have abnormal bleeding in the middle of next week. MICHAEL PATHAK DO Mar 18, 2022 21:44
[2022-03-18 21:56] LABS: BILIRUBIN,URINE NEGATIVE (NEGATIVE); CLARITY,URINE CLOUDY; COLOR,URINE RED; GLUCOSE, URINE (UA) NEGATIVE (NEGATIVE); KETONES,URINE NEGATIVE (NEGATIVE); LEUKOCYTE ESTERASE ,URINE NEGATIVE (NEGATIVE); NITRITE,URINE NEGATIVE (NEGATIVE); PROTEIN,URINE 1+ (NEGATIVE)
[2022-03-18 22:02] LABS: BACTERIA,URINE TRACE /HPF; RBC,URINE >100 /HPF
[2022-03-18 22:22] LABS: BASOPHILS % (AUTO) 0 % (0-10); EOSINOPHILS # (AUTO) 0.3 10^3/uL (0.0-0.3); EOSINOPHILS % (AUTO) 3 % (0-10); HEMATOCRIT 37 % (35-52); HEMOGLOBIN 12.4 g/dL (11.5-16.0); LYMPHOCYTES # (AUTO) 3.6 10^3/uL (1.0-4.0); LYMPHOCYTES % (AUTO) 32 % (12-44); MEAN CORPUSCULAR HEMOGLOBIN 27 pg (25-34); MEAN CORPUSCULAR HGB CONC 34 g/dL (32-36); MEAN CORPUSCULAR VOLUME 80 fL (80-99); MEAN PLATELET VOLUME 10.6 fL (9.0-12.2); MONOCYTES # (AUTO) 0.6 10^3/uL (0.0-1.0); MONOCYTES % (AUTO) 5 % (0-12); NEUTROPHILS # (AUTO) 6.5 10^3/uL (1.8-7.8); NEUTROPHILS % (AUTO) 59 % (42-75); PLATELET COUNT 381 10^3/uL (130-400)
== END 2022-03-18 22:31 | disposition home or self-care (01) ==
LOC: EDUNIT# 21:35 → ER FS 21:36
DX: N93.9 Abnormal uterine and vaginal bleeding, unspecified (principal); Z28.310 Unvaccinated for COVID-19
CPT/HCPCS: 36415; 81000; 84703; 85025